=== PATIENT | female | born 1955 | race Caucasian/White ===

== ENCOUNTER 2023-04-19 18:27 | Inpatient (IN) | payer BC, OTHER ==
[2023-04-19 18:50] VITALS: BMI 21.0
[2023-04-19] MEDS ORDERED: KETOROLAC TROMETHAMINE 30 MG/1 ML VIAL IM ONE (20:39)
[2023-04-19] MEDS ORDERED: KETOROLAC TROMETHAMINE 30 MG/1 ML VIAL ONE ×2 (20:50→21:52)
[2023-04-19] MEDS ORDERED: SODIUM CHLORIDE 0.9% 1000 ML INFUS.BAG IV ONE (22:05)
[2023-04-19 22:25] LABS: BASO % 0.3 % (0-2.0); HEMATOCRIT 36.5 % (32.4-45.2); HEMOGLOBIN 12.2 GM/dL (10.7-15.3); MCH 29.8 pg (25.7-33.7); MCHC 33.5 g/dl (32.0-36.0); MEAN PLT VOLUME 8.7 fl (7.5-11.1); MONO % 5.3 % (3.8-10.2); NEUT % 87.4 % (42.8-82.8); PLATELET COUNT 295 10^3/uL (134-434); RDW 12.9 % (11.6-15.6); WHITE BLOOD COUNT 15.8 K/mm3 (4.0-10.0)
[2023-04-19 22:33] LABS: INR 0.98 (0.83-1.09); PROTHROMBIN TIME (PATIENT) 11.4 SEC (9.7-13.0)
[2023-04-19 22:36] LABS: ACTIVATED PTT 27.9 SECONDS (25.2-36.5)
[2023-04-19 23:08] LABS: CALCIUM 8.6 mg/dL (8.5-10.1)
[2023-04-19 23:09] LABS: ALBUMIN 3.9 g/dl (3.4-5.0); BLOOD UREA NITROGEN 15.8 mg/dL (7-18)
[2023-04-19 23:12] LABS: CREATININE 0.7 mg/dL (0.55-1.3)
[2023-04-19 23:13] LABS: BILIRUBIN,TOTAL 0.4 mg/dL (0.2-1); TOT PROT 7.4 g/dl (6.4-8.2)
[2023-04-20] MEDS ORDERED: IBUPROFEN 600 MG TABLET (FP) PO PRN (01:38)
[2023-04-20] MEDS ORDERED: morphine SULFATE 4 MG/ML VIAL IVPUSH PRN (01:39)
[2023-04-20] MEDS ORDERED: MELATONIN 5 MG TABLETS PO ONE (01:40)
[2023-04-20] MEDS ORDERED: morphine SULFATE 4 MG/ML VIAL ONE (02:03)
[2023-04-20] MEDS ORDERED: PROPOFOL 20 ML ONE (07:32)
[2023-04-20] MEDS ORDERED: ceFAZolin SODIUM 1 GM VIAL ONE ×2 (07:32→16:25)
[2023-04-20] MEDS ORDERED: FENTANYL CITRATE/PF 50 MCG/ML VIAL ONE ×2 (07:32→08:45)
[2023-04-20] MEDS ORDERED: SODIUM CHLORIDE 0.9% P/F 10 ML VIAL IJ ONE (07:32)
[2023-04-20] MEDS ORDERED: MIDAZOLAM HCL 2 MG/2 ML SINGLE DOSE VIAL ONE (07:32)
[2023-04-20] MEDS ORDERED: LIDOCAINE HCL/PF 2% SDV 5ML VIAL ONE (07:33)
[2023-04-20] MEDS ORDERED: ceFAZolin SODIUM 1 GM VIAL IVPB ONE (07:43)
[2023-04-20] MEDS ORDERED: ONDANSETRON 4 MG/2 ML VIAL ONE (07:45)
[2023-04-20] MEDS ORDERED: DEXAMETHASONE SOD PHOSPHATE 4 MG/1 ML VIAL ONE (07:45)
[2023-04-20] MEDS ORDERED: ONDANSETRON 4 MG/2 ML VIAL IVPUSH PRN (08:23)
[2023-04-20] MEDS ORDERED: LACTATED RINGERS SOLUTION 1,000 ML IV SCH (08:30)
[2023-04-20] MEDS ORDERED: ENOXAPARIN NA (PORCINE) 40 MG/0.4 ML DISP.SYRIN SQ SCH (10:00)
[2023-04-20] MEDS ORDERED: CEFAZOLIN 1 GM in DEXTROSE 5%-WATER - 50 ML IVPB SCH (10:00)
[2023-04-20] MEDS ORDERED: SUMAtriptan SUCCINATE 25 MG TABLET PO ONE ×2 (10:30→12:35)
[2023-04-20] MEDS ORDERED: IBUPROFEN 400 MG TABLET (FP) PO ONE (12:32)
[2023-04-20] MEDS: LACTATED RINGERS SOLUTION 1,000 ML IV SCH ×2 (15:04→15:10)
[2023-04-20] MEDS: ASPIRIN 325 MG TABLET PO SCH (15:04)
[2023-04-20] MEDS: CEFAZOLIN 1 GM in DEXTROSE 5%-WATER - 50 ML IVPB SCH ×2 (16:30→23:49)
[2023-04-21] MEDS: LACTATED RINGERS SOLUTION 1,000 ML IV SCH ×2 (05:52→08:31)
[2023-04-21] MEDS ORDERED: SUMAtriptan SUCCINATE 25 MG TABLET PO PRN ×2 (08:10→08:12)
[2023-04-21 08:34] LABS: BASO % 0.1 % (0-2.0); EOS % 0.2 % (0-4.5); HEMATOCRIT 31.4 % (32.4-45.2); HEMOGLOBIN 10.2 GM/dL (10.7-15.3); LYMPH % 5.7 % (8-40); MCH 29.9 pg (25.7-33.7); MCHC 32.5 g/dl (32.0-36.0); MEAN CELL VOLUME 91.9 fl (80-96); MEAN PLT VOLUME 8.9 fl (7.5-11.1); MONO % 6.2 % (3.8-10.2); NEUT % 87.8 % (42.8-82.8); PLATELET COUNT 205 10^3/uL (134-434); RBC 3.42 M/mm3 (3.60-5.2); WHITE BLOOD COUNT 11.1 K/mm3 (4.0-10.0)
[2023-04-21 08:52] LABS: POTASSIUM 4.2 mmol/L (3.5-5.1)
[2023-04-21 08:54] LABS: CALCIUM 7.9 mg/dL (8.5-10.1); MAGNESIUM 2.1 mg/dL (1.8-2.4)
[2023-04-21 08:55] LABS: BLOOD UREA NITROGEN 14.7 mg/dL (7-18)
[2023-04-21 08:57] LABS: CREATININE 0.5 mg/dL (0.55-1.3); PHOSPHOROUS 2.4 mg/dL (2.5-4.9)
[2023-04-21 09:00] LABS: BILIRUBIN,TOTAL 0.8 mg/dL (0.2-1); TOT PROT 5.9 g/dl (6.4-8.2)
[2023-04-21] MEDS: ASPIRIN 325 MG TABLET PO SCH (09:27)
[2023-04-21] MEDS ORDERED: ACETAMINOPHEN 500 MG TABLET (FP) PO PRN (10:39)
[2023-04-21] MEDS ORDERED: SUMAtriptan SUCCINATE 25 MG TABLET PO ONE (12:30)
[2023-04-21 14:23] VITALS: BP 143/81; PULSE 70; RESP 18; TEMP 98.5
== END 2023-04-21 18:07 | disposition home or self-care (01) | DRG 482 ==
LOC: JER 18:27 → JERBED 21:45 → J8W 04-20 14:39
PROVIDERS: ADMIT Internal Medicine; ATTEND Nurse Practitioner Family
PROC: 0QS634Z Reposition Right Upper Femur with Internal Fixation Device, Percutaneous Approach (ICD-10-PCS; principal; 2023-04-20 07:30)
DX: S72.001A Fracture of unspecified part of neck of right femur, initial encounter for closed fracture (principal); W19.XXXA Unspecified fall, initial encounter; Y93.9 Activity, unspecified; Y92.89 Other specified places as the place of occurrence of the external cause; Y99.9 Unspecified external cause status
CPT/HCPCS: 36415; 71045-TC-FY; 72170-TC-FY; 72192-TC; 73502-TC-RT-FY; 76000-TC-FY; 80048; 80053; 83735; 84100; 85025; 85610; 85730; 86850; 86900; 86901; 94760; 97116-GP; 97161-GP; 99285-25; C1713

== ENCOUNTER 2023-07-17 12:22 | Emergency (ER) | payer BC ==
[2023-07-17 12:40] VITALS: TEMP 97.7; BMI 20.5
[2023-07-17] MEDS ORDERED: OXYMETAZOLINE 0.05% NASAL SOLUTION 15 ML BOTTLE NS ONE (12:56)
[2023-07-17] MEDS ORDERED: TRANEXAMIC ACID 1000 MG/10 ML VIAL IVPB ONE (14:11)
[2023-07-17] MEDS ORDERED: TRANEXAMIC ACID 1000 MG/10 ML VIAL ONE (14:15)
[2023-07-17] MEDS ORDERED: SODIUM CHLORIDE 0.9% 500 ML INFUS.BAG IV ONE (14:27)
[2023-07-17 14:36] LABS: BASO % 0.2 % (0-2.0); HEMATOCRIT 35.2 % (32.4-45.2); HEMOGLOBIN 11.6 GM/dL (10.7-15.3); LYMPH % 9.2 % (8-40); MCH 29.7 pg (25.7-33.7); MCHC 32.9 g/dl (32.0-36.0); MEAN CELL VOLUME 90.3 fl (80-96); MEAN PLT VOLUME 8.7 fl (7.5-11.1); MONO % 4.7 % (3.8-10.2); NEUT % 85.9 % (42.8-82.8); PLATELET COUNT 254 10^3/uL (134-434); RDW 13.6 % (11.6-15.6); WHITE BLOOD COUNT 12.5 K/mm3 (4.0-10.0)
[2023-07-17 15:22] VITALS: BP 145/89; PULSE 80; RESP 16
== END 2023-07-17 15:23 | disposition home or self-care (01) ==
LOC: JER 12:22
PROC: 3E033GC Introduction of Other Therapeutic Substance into Peripheral Vein, Percutaneous Approach (ICD-10-PCS; principal; 2023-07-17)
DX: R04.0 Epistaxis (principal)
CPT/HCPCS: 36415; 85025; 86850; 86900; 86901; 93005; 93010; 99284-25

== ENCOUNTER 2023-08-06 16:34 | Observation (INO) | payer BC, OTHER ==
[2023-08-06 17:38] LABS: BASO % 0.3 % (0-2.0); EOS % 0.3 % (0-4.5); HEMATOCRIT 33.6 % (32.4-45.2); LYMPH % 17.2 % (8-40); MCH 29.9 pg (25.7-33.7); MCHC 32.8 g/dl (32.0-36.0); MEAN CELL VOLUME 91.1 fl (80-96); MEAN PLT VOLUME 8.8 fl (7.5-11.1); MONO % 4.2 % (3.8-10.2); PLATELET COUNT 360 10^3/uL (134-434); RBC 3.68 M/mm3 (3.60-5.2); RDW 14.1 % (11.6-15.6); WHITE BLOOD COUNT 7.4 K/mm3 (4.0-10.0)
[2023-08-06 17:48] LABS: INR 1.02 (0.83-1.09); PROTHROMBIN TIME (PATIENT) 11.8 SEC (9.7-13.0)
[2023-08-06 17:51] LABS: ACTIVATED PTT 30.2 SECONDS (25.2-36.5)
[2023-08-06 17:59] LABS: POTASSIUM 3.7 mmol/L (3.5-5.1)
[2023-08-06 18:02] LABS: BLOOD UREA NITROGEN 16.7 mg/dL (7-18); MAGNESIUM 2.3 mg/dL (1.8-2.4)
[2023-08-06 18:05] LABS: CREATININE 0.7 mg/dL (0.55-1.3)
[2023-08-06 18:06] LABS: BILIRUBIN,TOTAL 0.4 mg/dL (0.2-1); TOT PROT 7.6 g/dl (6.4-8.2)
[2023-08-06] MEDS: LOSARTAN POTASSIUM 50 MG TABLET PO SCH (21:16)
[2023-08-06] MEDS ORDERED: LOSARTAN POTASSIUM 50 MG TABLET ONE (21:17)
[2023-08-06 21:44] LABS: EPI CELLS 13 /uL (0-25.1); HYALINE CASTS 0 /uL (0-3.1); PH,URINE 7.5 (5.0-8.0); URINE APPEARANCE CLEAR; URINE BACTERIA 80 /uL (0-1359); URINE BILIRUBIN NEGATIVE (NEGATIVE); URINE COLOR YELLOW; URINE GLUCOSE (UA) NEGATIVE (NEGATIVE); URINE KETONE NEGATIVE (NEGATIVE); URINE LEUK ESTERASE TRACE (NEGATIVE); URINE NITRITE NEGATIVE (NEGATIVE); URINE PROTEIN NEGATIVE (NEGATIVE); URINE RBC 9 /uL (0-23.9); URINE UROBILINOGEN 0.2 mg/dL (0.2-1.0); URINE WBC 24 /uL (0-25.8)
[2023-08-06 22:32] VITALS: BMI 18.6
[2023-08-07 06:58] LABS: BASO % 0.4 % (0-2.0); EOS % 0.3 % (0-4.5); HEMATOCRIT 30.1 % (32.4-45.2); HEMOGLOBIN 9.8 GM/dL (10.7-15.3); LYMPH % 23.6 % (8-40); MCH 29.8 pg (25.7-33.7); MCHC 32.5 g/dl (32.0-36.0); MEAN CELL VOLUME 91.7 fl (80-96); NEUT % 67.7 % (42.8-82.8); PLATELET COUNT 313 10^3/uL (134-434); RBC 3.29 M/mm3 (3.60-5.2); RDW 13.9 % (11.6-15.6); WHITE BLOOD COUNT 6.5 K/mm3 (4.0-10.0)
[2023-08-07 07:16] LABS: CALCIUM 8.3 mg/dL (8.5-10.1); MAGNESIUM 2.2 mg/dL (1.8-2.4); POTASSIUM 3.7 mmol/L (3.5-5.1)
[2023-08-07 07:18] LABS: ALBUMIN 3.3 g/dl (3.4-5.0); BLOOD UREA NITROGEN 19.3 mg/dL (7-18)
[2023-08-07 07:20] LABS: CREATININE 0.6 mg/dL (0.55-1.3)
[2023-08-07 07:21] LABS: PHOSPHOROUS 3.8 mg/dL (2.5-4.9); TOT PROT 6.6 g/dl (6.4-8.2)
[2023-08-07 07:23] LABS: BILIRUBIN,TOTAL 0.5 mg/dL (0.2-1)
[2023-08-07] MEDS ORDERED: HYDROCHLOROTHIAZIDE 12.5 MG CAPSULE (FP) PO SCH (10:00)
[2023-08-07] MEDS: ENOXAPARIN NA (PORCINE) 40 MG/0.4 ML DISP.SYRIN SQ SCH (11:01)
[2023-08-07] MEDS: SODIUM CHLORIDE 0.45% 1,000 ML IV SCH (13:19)
[2023-08-08 07:12] LABS: HEMATOCRIT 29.2 % (32.4-45.2); HEMOGLOBIN 9.8 GM/dL (10.7-15.3); MCH 30.5 pg (25.7-33.7); MCHC 33.4 g/dl (32.0-36.0); MEAN CELL VOLUME 91.1 fl (80-96); MEAN PLT VOLUME 8.8 fl (7.5-11.1); PLATELET COUNT 305 10^3/uL (134-434); RDW 13.8 % (11.6-15.6); WHITE BLOOD COUNT 5.6 K/mm3 (4.0-10.0)
[2023-08-08 07:29] LABS: POTASSIUM 4.2 mmol/L (3.5-5.1)
[2023-08-08 07:32] LABS: CALCIUM 8.7 mg/dL (8.5-10.1)
[2023-08-08 07:33] LABS: BLOOD UREA NITROGEN 13.5 mg/dL (7-18)
[2023-08-08 07:36] LABS: CREATININE 0.7 mg/dL (0.55-1.3)
[2023-08-08 07:41] LABS: N-TERMINAL BNP 79.5 pg/ml (5-125)
[2023-08-08] MEDS: metoPROLOL SUCCINATE 25 MG TAB.SR.24H (FP) PO SCH (11:42)
[2023-08-08] MEDS: ACETAMINOPHEN/CAFFEINE/BUTALBITAL 1 TAB PO PRN (12:34)
[2023-08-08 15:04] VITALS: BP 155/91; PULSE 74; RESP 18; TEMP 98.6
[2023-08-08] MEDS: LOSARTAN POTASSIUM 50 MG TABLET PO ONE (15:17)
== END 2023-08-08 15:30 | disposition home or self-care (01) ==
LOC: JER 16:34 → JERBED 18:19 → J4W 22:13
PROVIDERS: ADMIT Internal Medicine; ATTEND Internal Medicine
PROC: 3E023GC Introduction of Other Therapeutic Substance into Muscle, Percutaneous Approach (ICD-10-PCS; principal; 2023-08-06)
PROC: 3E0337Z Introduction of Electrolytic and Water Balance Substance into Peripheral Vein, Percutaneous Approach (ICD-10-PCS; 2023-08-06)
DX: I16.0 Hypertensive urgency (principal); R00.2 Palpitations; R55 Syncope and collapse; G43.909 Migraine, unspecified, not intractable, without status migrainosus; N20.0 Calculus of kidney; Z88.8 Allergy status to other drugs, medicaments and biological substances
CPT/HCPCS: 36415; 71045-TC-FY; 80048; 80053; 80061; 81003; 82272; 83036; 83735; 83880; 84100; 84439; 84443; 84484; 85025; 85027; 85610; 85730; 93005; 93010; 93306-TC; 99285-25; G0378

== ENCOUNTER 2024-06-16 11:18 | Observation (INO) | payer BC, OTHER ==
[2024-06-16 12:32] LABS: BASO % 0.3 % (0-2.0); EOS % 0.1 % (0-4.5); HEMOGLOBIN 13.6 GM/dL (10.7-15.3); LYMPH % 14.8 % (8-40); MCH 30.2 pg (25.7-33.7); MCHC 33.1 g/dl (32.0-36.0); MEAN CELL VOLUME 91.1 fl (80-96); MEAN PLT VOLUME 8.9 fl (7.5-11.1); MONO % 5.1 % (3.8-10.2); NEUT % 79.7 % (42.8-82.8); PLATELET COUNT 296 10^3/uL (134-434); RDW 12.8 % (11.6-15.6)
[2024-06-16 12:38] LABS: INR 0.98 (0.83-1.09); PROTHROMBIN TIME (PATIENT) 11.1 SEC (9.7-13.0)
[2024-06-16] MEDS: SODIUM CHLORIDE 0.9% 1000 ML INFUS.BAG IV ONE (12:47)
[2024-06-16 12:54] LABS: POTASSIUM 3.8 mmol/L (3.5-5.1)
[2024-06-16 12:55] LABS: ALBUMIN 4.5 g/dl (3.4-5.0); BLOOD UREA NITROGEN 14.5 mg/dL (7-18); CALCIUM 9.4 mg/dL (8.5-10.1); MAGNESIUM 2.2 mg/dL (1.8-2.4)
[2024-06-16 12:59] LABS: CREATININE 0.7 mg/dL (0.55-1.3)
[2024-06-16 13:01] LABS: BILIRUBIN,TOTAL 0.5 mg/dL (0.2-1); TOT PROT 8.4 g/dl (6.4-8.2)
[2024-06-16] MEDS ORDERED: FAMOTIDINE 20 MG/50 ML IVPB 20 MG/50 ML MG IVPB ONE (16:21)
[2024-06-16] MEDS ORDERED: MAG HYDROX/AL HYDROX/SIMETH 30 ML UNIT-DOSE CUP ONE (16:21)
[2024-06-16] MEDS: FAMOTIDINE 20 MG/50 ML IVPB 20 MG/50 ML MG IVPB ONE (16:34)
[2024-06-16] MEDS: MAG HYDROX/AL HYDROX/SIMETH 30 ML UNIT-DOSE CUP PO ONE (16:34)
[2024-06-16] MEDS ORDERED: LOSARTAN POTASSIUM 50 MG TABLET ONE (20:58)
[2024-06-16] MEDS: LOSARTAN POTASSIUM 50 MG TABLET PO SCH (21:02)
[2024-06-17] MEDS ORDERED: SUMAtriptan SUCCINATE 25 MG TABLET PO PRN ×2 (00:07→00:13)
[2024-06-17] MEDS ORDERED: POTASSIUM CHLORIDE TABS 20 MEQ TABLET.ER (FP) PO ONE (00:14)
[2024-06-17] MEDS: POTASSIUM CHLORIDE TABS 20 MEQ TABLET.ER (FP) PO ONE (00:28)
[2024-06-17] MEDS: SUMAtriptan SUCCINATE 25 MG TABLET PO ONE (00:29)
[2024-06-17 06:39] LABS: HEMATOCRIT 37.1 % (32.4-45.2); HEMOGLOBIN 12.5 GM/dL (10.7-15.3); MCH 30.7 pg (25.7-33.7); MCHC 33.7 g/dl (32.0-36.0); MEAN PLT VOLUME 8.7 fl (7.5-11.1); PLATELET COUNT 296 10^3/uL (134-434); RBC 4.08 M/mm3 (3.60-5.2); RDW 13.3 % (11.6-15.6); WHITE BLOOD COUNT 7.4 K/mm3 (4.0-10.0)
[2024-06-17 07:07] LABS: POTASSIUM 4.6 mmol/L (3.5-5.1)
[2024-06-17 07:13] LABS: BLOOD UREA NITROGEN 15.3 mg/dL (7-18)
[2024-06-17 07:15] LABS: CALCIUM 8.4 mg/dL (8.5-10.1); MAGNESIUM 2.2 mg/dL (1.8-2.4)
[2024-06-17 07:17] LABS: CREATININE 0.8 mg/dL (0.55-1.3); PHOSPHOROUS 3.7 mg/dL (2.5-4.9)
[2024-06-17] MEDS ORDERED: LOSARTAN POTASSIUM 50 MG TABLET ONE (22:47)
[2024-06-17] MEDS: LOSARTAN POTASSIUM 50 MG TABLET PO SCH (22:49)
[2024-06-18 07:18] LABS: BASO % 0.4 % (0-2.0); EOS % 0.9 % (0-4.5); HEMATOCRIT 36.7 % (32.4-45.2); HEMOGLOBIN 12.4 GM/dL (10.7-15.3); LYMPH % 24.7 % (8-40); MCH 30.5 pg (25.7-33.7); MCHC 33.8 g/dl (32.0-36.0); MEAN CELL VOLUME 90.4 fl (80-96); MEAN PLT VOLUME 8.6 fl (7.5-11.1); MONO % 6.4 % (3.8-10.2); NEUT % 67.6 % (42.8-82.8); PLATELET COUNT 288 10^3/uL (134-434); RBC 4.06 M/mm3 (3.60-5.2); RDW 13.1 % (11.6-15.6); WHITE BLOOD COUNT 7.3 K/mm3 (4.0-10.0)
[2024-06-18 07:23] LABS: POTASSIUM 4.7 mmol/L (3.5-5.1)
[2024-06-18 07:25] LABS: CALCIUM 8.7 mg/dL (8.5-10.1)
[2024-06-18 07:26] LABS: BLOOD UREA NITROGEN 13.3 mg/dL (7-18)
[2024-06-18 07:29] LABS: CREATININE 0.8 mg/dL (0.55-1.3)
[2024-06-18 07:30] LABS: BILIRUBIN,TOTAL 0.6 mg/dL (0.2-1); TOT PROT 6.6 g/dl (6.4-8.2)
[2024-06-18 07:38] LABS: ALBUMIN 3.4 g/dl (3.4-5.0)
[2024-06-18 09:35] VITALS: TEMP 98.2
[2024-06-18 17:10] VITALS: BP 133/77; PULSE 68; RESP 20
== END 2024-06-18 17:30 | disposition home or self-care (01) ==
LOC: JER 11:18 → JERBED 17:34 → J2W 06-18 02:34
PROVIDERS: ADMIT Internal Medicine; ATTEND Internal Medicine
PROC: 3E033GC Introduction of Other Therapeutic Substance into Peripheral Vein, Percutaneous Approach (ICD-10-PCS; principal; 2024-06-16)
PROC: 3E0337Z Introduction of Electrolytic and Water Balance Substance into Peripheral Vein, Percutaneous Approach (ICD-10-PCS; 2024-06-16)
DX: R07.89 Other chest pain (principal); I10 Essential (primary) hypertension; R00.2 Palpitations; Z88.8 Allergy status to other drugs, medicaments and biological substances
CPT/HCPCS: 36415; 71045-TC-FY; 71275-TC; 80048; 80053; 80061; 83036; 83735; 83880; 84100; 84439; 84443; 84484; 85025; 85027; 85610; 85730; 87481; 93005; 93010; 93306-TC; 99285-25; G0378

== ENCOUNTER 2024-11-11 12:46 | Emergency (ER) | payer BC, OTHER ==
[2024-11-11 12:55] VITALS: TEMP 97.9; BMI 20.5
[2024-11-11] MEDS ORDERED: MAG HYDROX/AL HYDROX/SIMETH 30 ML UNIT-DOSE CUP ONE (14:02)
[2024-11-11] MEDS ORDERED: FAMOTIDINE 10 MG TABLET ONE (14:02)
[2024-11-11 14:07] LABS: ABSOLUTE IMMATURE GRANULOCYTES 0.02 x10^3/uL (0.0-0.031); BASOPHILS # 0.02 x10^3/uL (0.01-0.08); EOSINOPHIL % 0.1 % (0.7-5.8); EOSINOPHILS # 0.01 x10^3/uL (0.04-0.36); HEMATOCRIT 40.9 % (34.1-44.9); HEMOGLOBIN 13.2 g/dL (11.2-15.7); MCHC 32.3 g/dl (32.2-35.5); MEAN CELL VOLUME 93.2 fl (79.4-94.8); MEAN PLT VOLUME 10.6 fl (9.4-12.3); MONOCYTE # 0.43 x10^3/uL (0.24-0.86); MONOCYTE % 6.2 % (4.7-12.5); PLATELET COUNT 261 x10^3/uL (182-369); RDW 12.3 % (12.4-16.4)
[2024-11-11] MEDS: FAMOTIDINE 10 MG TABLET PO ONE (14:08)
[2024-11-11] MEDS: MAG HYDROX/AL HYDROX/SIMETH 30 ML UNIT-DOSE CUP PO ONE (14:08)
[2024-11-11 14:09] LABS: INR 1.06 (0.83-1.09); PROTHROMBIN TIME (PATIENT) 11.7 SEC (9.7-13.0)
[2024-11-11 14:12] LABS: ACTIVATED PTT 31.3 SECONDS (25.2-36.5)
[2024-11-11 14:20] LABS: POTASSIUM 4.5 mmol/L (3.5-5.1)
[2024-11-11 14:22] LABS: ALBUMIN 4.2 g/dl (3.4-5.0); CALCIUM 9.4 mg/dL (8.5-10.1); MAGNESIUM 2.4 mg/dL (1.8-2.4)
[2024-11-11 14:25] LABS: CREATININE 0.7 mg/dL (0.55-1.3)
[2024-11-11 14:27] LABS: BILIRUBIN,TOTAL 0.7 mg/dL (0.2-1); TOT PROT 7.5 g/dl (6.4-8.2)
[2024-11-11 16:22] VITALS: BP 142/78; PULSE 64; RESP 14
== END 2024-11-11 16:25 | disposition home or self-care (01) ==
LOC: JER 12:46
DX: R07.89 Other chest pain (principal)
CPT/HCPCS: 0241U-QW; 36415; 71045-TC-FY; 80053; 83690; 83735; 84484; 85025; 85379; 85610; 85730; 93005; 93010; 99285-25